=== PATIENT | male | born 1940 | race Caucasian/White ===

== ENCOUNTER 2019-11-30 21:18 | Inpatient (IN) | payer MEDICARE, BC ==
[~2019-11-30] VITALS: Ht 177.8 cm; Wt 75.5 kg
[2019-11-30] MEDS ORDERED: Z GUARD REMEDY PASTE 57 GM TUBE TOP PRN (21:30)
[2019-11-30] MEDS ORDERED: OMEP20CA15 PO (21:31)
[2019-11-30] MEDS ORDERED: COLE1TAB2 PO (21:31)
[2019-11-30] MEDS ORDERED: ENOX40DI SQ (21:31)
[2019-11-30] MEDS ORDERED: SERT50TA PO (21:31)
[2019-11-30] MEDS ORDERED: ATOR20TA PO (21:31)
[2019-11-30] MEDS ORDERED: CHOL200013 PO (21:31)
[2019-11-30] MEDS ORDERED: MERO500V21 IV (21:31)
[2019-11-30] MEDS ORDERED: FLUT16SP BNOSTRILS (21:31)
[2019-11-30] MEDS ORDERED: QUET25TA PO (21:31)
[2019-11-30 21:57] VITALS: BP 122/48
[2019-12-01 05:07] VITALS: BP 108/54
[2019-12-01] MEDS ORDERED: MEROPENEM 0.5 G in IV NORMAL SALINE 50 ML IV ONE (06:00)
[2019-12-01] MEDS ORDERED: MEROPENEM 500 MG VIAL IV SCH (06:00)
[2019-12-01] MEDS: PANTOPRAZOLE SODIUM 40 MG TABLET.DR PO SCH (06:02)
[2019-12-01] MEDS: FLUTICASONE PROP NASAL SPRAY 16 GM BOTTLE NS SCH (08:43)
[2019-12-01] MEDS: CHOLECALCIFEROL 1,000 UNIT TABLET PO SCH (08:43)
[2019-12-01] MEDS: SERTRALINE HCL 50 MG TABLET PO SCH (08:43)
[2019-12-01] MEDS: ENOXAPARIN SODIUM 40 MG/0.4 ML DISP.SYRIN SQ SCH (08:44)
[2019-12-01 08:48] VITALS: BP 108/55
[2019-12-01 09:22] LABS: CREATININE 0.7 mg/dL (0.6-1.3); POTASSIUM 3.7 mmol/L (3.5-5.1)
[2019-12-01] MEDS: MEROPENEM 1 G in IV NORMAL SALINE 100 ML IV SCH ×2 (13:51→21:07)
[2019-12-01 16:36] VITALS: BP 116/57
[2019-12-01] MEDS ORDERED: LOPERAMIDE HCL 2 MG CAPSULE PO PRN (20:00)
[2019-12-01 20:08] VITALS: BP 95/59
[2019-12-01] MEDS: ATORVASTATIN 20 MG TABLET PO SCH (20:10)
[2019-12-01] MEDS: QUETIAPINE FUMARATE 25 MG TABLET PO SCH (20:12)
[2019-12-02 05:03] VITALS: BP 110/60
[2019-12-02] MEDS: MEROPENEM 1 G in IV NORMAL SALINE 100 ML IV SCH (05:16)
[2019-12-02] MEDS: PANTOPRAZOLE SODIUM 40 MG TABLET.DR PO SCH (06:18)
[2019-12-02] MEDS: SERTRALINE HCL 50 MG TABLET PO SCH (08:22)
[2019-12-02] MEDS: CHOLECALCIFEROL 1,000 UNIT TABLET PO SCH (08:22)
[2019-12-02] MEDS: FLUTICASONE PROP NASAL SPRAY 16 GM BOTTLE NS SCH (08:23)
[2019-12-02] MEDS: OXYCODONE/APAP 5-325 MG TABLET PO PRN ×2 (08:23→18:48)
[2019-12-02] MEDS: ENOXAPARIN SODIUM 40 MG/0.4 ML DISP.SYRIN SQ SCH (08:28)
[2019-12-02] MEDS: LIDOCAINE 5% PATCH TD SCH (08:29)
[2019-12-02] MEDS ORDERED: COLESTIPOL HCL 1 GM PO SCH (09:00)
[2019-12-02 09:11] VITALS: BP 90/50
[2019-12-02] MEDS ORDERED: GADOTERATE MEGLUMINE 5 MMOL/10 ML VIAL IV ONE (11:17)
[2019-12-02] MEDS: CEFEPIME HCL 1 G in IV DEXTROSE 5% 50 ML IV SCH (16:02)
[2019-12-02 16:04] VITALS: BP 96/46
[2019-12-02 20:12] VITALS: BP 105/48
[2019-12-02] MEDS: QUETIAPINE FUMARATE 25 MG TABLET PO SCH (21:04)
[2019-12-02] MEDS: ATORVASTATIN 20 MG TABLET PO SCH (21:04)
[2019-12-03] MEDS: OXYCODONE/APAP 5-325 MG TABLET PO PRN (04:06)
[2019-12-03 04:12] VITALS: BP 119/49
[2019-12-03] MEDS: CEFEPIME HCL 1 G in IV DEXTROSE 5% 50 ML IV SCH ×2 (04:14→17:19)
[2019-12-03] MEDS: PANTOPRAZOLE SODIUM 40 MG TABLET.DR PO SCH (06:07)
[2019-12-03 06:40] LABS: BASOPHILS % (AUTO) 0.5 % (0.0-2.0); EOSINOPHILS # (AUTO) 0.2 K/uL (0.0-0.7); EOSINOPHILS % (AUTO) 3.1 % (0.0-7.0); HEMATOCRIT 29.2 % (36.7-47.1); HEMOGLOBIN 9.8 g/dL (12.5-16.3); LYMPHOCYTES # (AUTO) 0.9 K/uL (20.0-40.0); LYMPHOCYTES % (AUTO) 13.9 % (20.5-51.5); MEAN CORPUSCULAR HEMOGLOBIN 33.9 uug (23.8-33.4); MEAN CORPUSCULAR HGB CONC 34 g/dL (32.5-36.3); MEAN CORPUSCULAR VOLUME 101.1 fL (73.0-96.2); MONOCYTES # (AUTO) 0.6 K/uL (2.0-10.0); MONOCYTES % (AUTO) 9.4 % (0.0-11.0); NEUTROPHILS # (AUTO) 4.9 K/uL (1.8-8.9); NEUTROPHILS % (AUTO) 73.1 % (38.5-71.5); PLATELET COUNT (AUTO) 320 K/uL (152-348); RED BLOOD CELL COUNT(AUTO) 2.89 MIL/uL (4.06-5.63); WHITE BLOOD COUNT (AUTO) 6.8 K/uL (3.6-10.2)
[2019-12-03 06:50] LABS: THYROID STIMULATING HORMONE 3.572 mIU/mL (0.358-3.740)
[2019-12-03 07:13] LABS: BILIRUBIN,TOTAL 0.5 mg/dL (0.2-1.0); CREATININE 0.8 mg/dL (0.6-1.3); MAGNESIUM 1.8 mg/dL (1.8-2.4); PHOSPHOROUS 2.8 mg/dL (2.5-4.9); POTASSIUM 3.8 mmol/L (3.5-5.1)
[2019-12-03] MEDS: FLUTICASONE PROP NASAL SPRAY 16 GM BOTTLE NS SCH (08:13)
[2019-12-03] MEDS: LIDOCAINE 5% PATCH TD SCH (08:14)
[2019-12-03] MEDS: CHOLECALCIFEROL 1,000 UNIT TABLET PO SCH (08:15)
[2019-12-03] MEDS: SERTRALINE HCL 50 MG TABLET PO SCH (08:15)
[2019-12-03] MEDS: ENOXAPARIN SODIUM 40 MG/0.4 ML DISP.SYRIN SQ SCH (08:16)
[2019-12-03 10:00] VITALS: BP 133/58
[2019-12-03] MEDS: GABAPENTIN 300 MG CAPSULE PO SCH ×3 (15:06→17:30)
[2019-12-03 15:51] VITALS: BP 99/46
[2019-12-03 20:00] VITALS: BP 128/52
[2019-12-03] MEDS: QUETIAPINE FUMARATE 25 MG TABLET PO SCH (21:01)
[2019-12-03] MEDS: ATORVASTATIN 20 MG TABLET PO SCH (21:01)
[2019-12-04 04:00] VITALS: BP 111/59
[2019-12-04] MEDS: CEFEPIME HCL 1 G in IV DEXTROSE 5% 50 ML IV SCH ×2 (05:05→16:35)
[2019-12-04] MEDS: PANTOPRAZOLE SODIUM 40 MG TABLET.DR PO SCH (06:11)
[2019-12-04 08:00] VITALS: BP 110/52
[2019-12-04] MEDS: FLUTICASONE PROP NASAL SPRAY 16 GM BOTTLE NS SCH (08:57)
[2019-12-04] MEDS: SERTRALINE HCL 50 MG TABLET PO SCH (08:57)
[2019-12-04] MEDS: CHOLECALCIFEROL 1,000 UNIT TABLET PO SCH (08:57)
[2019-12-04] MEDS: LIDOCAINE 5% PATCH TD SCH (08:58)
[2019-12-04] MEDS: ENOXAPARIN SODIUM 40 MG/0.4 ML DISP.SYRIN SQ SCH (08:59)
[2019-12-04] MEDS: GABAPENTIN 300 MG CAPSULE PO SCH ×2 (12:43→17:09)
[2019-12-04 16:00] VITALS: BP 101/53
[2019-12-04 20:00] VITALS: BP 107/52
[2019-12-04] MEDS: QUETIAPINE FUMARATE 25 MG TABLET PO SCH (20:50)
[2019-12-04] MEDS: ATORVASTATIN 20 MG TABLET PO SCH (20:50)
[2019-12-04 21:43] LABS: *OCCULT BLOOD STOOL POSITIVE (NEGATIVE)
[2019-12-05] MEDS: OXYCODONE/APAP 5-325 MG TABLET PO PRN ×2 (03:36→20:06)
[2019-12-05 04:00] VITALS: BP 99/49
[2019-12-05] MEDS: PANTOPRAZOLE SODIUM 40 MG TABLET.DR PO SCH (06:21)
[2019-12-05] MEDS: LIDOCAINE 5% PATCH TD SCH (08:11)
[2019-12-05] MEDS: SERTRALINE HCL 50 MG TABLET PO SCH (08:11)
[2019-12-05] MEDS: GABAPENTIN 300 MG CAPSULE PO SCH ×3 (08:11→17:10)
[2019-12-05] MEDS: FLUTICASONE PROP NASAL SPRAY 16 GM BOTTLE NS SCH (08:11)
[2019-12-05] MEDS: CHOLECALCIFEROL 1,000 UNIT TABLET PO SCH (08:11)
[2019-12-05] MEDS: ENOXAPARIN SODIUM 40 MG/0.4 ML DISP.SYRIN SQ SCH (08:13)
[2019-12-05 09:18] VITALS: BP 112/52
[2019-12-05 15:44] VITALS: BP 101/49
[2019-12-05] MEDS: ATORVASTATIN 10 MG TABLET PO SCH (20:05)
[2019-12-05] MEDS: QUETIAPINE FUMARATE 25 MG TABLET PO SCH (20:05)
[2019-12-05 20:53] VITALS: BP 107/50
[2019-12-06 06:06] VITALS: BP 103/56
[2019-12-06] MEDS: PANTOPRAZOLE SODIUM 40 MG TABLET.DR PO SCH (06:36)
[2019-12-06 06:50] LABS: BASOPHILS # (AUTO) 0.1 K/uL (0.0-8.0); BASOPHILS % (AUTO) 0.8 % (0.0-2.0); EOSINOPHILS # (AUTO) 0.1 K/uL (0.0-0.7); EOSINOPHILS % (AUTO) 2.1 % (0.0-7.0); HEMATOCRIT 28.3 % (36.7-47.1); HEMOGLOBIN 9.8 g/dL (12.5-16.3); LYMPHOCYTES # (AUTO) 1.4 K/uL (20.0-40.0); LYMPHOCYTES % (AUTO) 20.2 % (20.5-51.5); MEAN CORPUSCULAR HEMOGLOBIN 34.2 uug (23.8-33.4); MEAN CORPUSCULAR HGB CONC 35 g/dL (32.5-36.3); MEAN CORPUSCULAR VOLUME 98.9 fL (73.0-96.2); MONOCYTES # (AUTO) 0.8 K/uL (2.0-10.0); MONOCYTES % (AUTO) 11.6 % (0.0-11.0); NEUTROPHILS # (AUTO) 4.5 K/uL (1.8-8.9); NEUTROPHILS % (AUTO) 65.3 % (38.5-71.5); PLATELET COUNT (AUTO) 326 K/uL (152-348); RED BLOOD CELL COUNT(AUTO) 2.86 MIL/uL (4.06-5.63); WHITE BLOOD COUNT (AUTO) 6.9 K/uL (3.6-10.2)
[2019-12-06 07:25] LABS: BILIRUBIN,TOTAL 0.3 mg/dL (0.2-1.0); CREATININE 0.9 mg/dL (0.6-1.3); POTASSIUM 3.8 mmol/L (3.5-5.1); TOTAL PROTEIN, SERUM 5.5 g/dL (6.4-8.2)
[2019-12-06 08:00] VITALS: BP 108/47
[2019-12-06] MEDS: ENOXAPARIN SODIUM 40 MG/0.4 ML DISP.SYRIN SQ SCH (08:14)
[2019-12-06] MEDS: LIDOCAINE 5% PATCH TD SCH (08:16)
[2019-12-06] MEDS: CHOLECALCIFEROL 1,000 UNIT TABLET PO SCH (08:16)
[2019-12-06] MEDS: SERTRALINE HCL 50 MG TABLET PO SCH (08:16)
[2019-12-06] MEDS: GABAPENTIN 300 MG CAPSULE PO SCH ×3 (08:16→16:30)
[2019-12-06] MEDS: FLUTICASONE PROP NASAL SPRAY 16 GM BOTTLE NS SCH (08:17)
[2019-12-06] MEDS: ENSURE ENLIVE (VAN) 240 ML LIQUID PO SCH ×2 (13:24→17:30)
[2019-12-06 16:21] VITALS: BP 106/50
[2019-12-06] MEDS: OXYCODONE/APAP 5-325 MG TABLET PO PRN (19:59)
[2019-12-06] MEDS: ATORVASTATIN 10 MG TABLET PO SCH (20:00)
[2019-12-06] MEDS: QUETIAPINE FUMARATE 25 MG TABLET PO SCH (20:00)
[2019-12-06 21:19] VITALS: BP 119/53
[2019-12-07 05:34] VITALS: BP 110/57
[2019-12-07] MEDS: PANTOPRAZOLE SODIUM 40 MG TABLET.DR PO SCH (06:19)
[2019-12-07] MEDS: FLUTICASONE PROP NASAL SPRAY 16 GM BOTTLE NS SCH (08:10)
[2019-12-07] MEDS: ENSURE ENLIVE (VAN) 240 ML LIQUID PO SCH ×2 (08:10→17:30)
[2019-12-07] MEDS: GABAPENTIN 300 MG CAPSULE PO SCH ×3 (08:10→17:29)
[2019-12-07] MEDS: CHOLECALCIFEROL 1,000 UNIT TABLET PO SCH (08:10)
[2019-12-07] MEDS: ENOXAPARIN SODIUM 40 MG/0.4 ML DISP.SYRIN SQ SCH (08:11)
[2019-12-07] MEDS: LIDOCAINE 5% PATCH TD SCH (08:11)
[2019-12-07] MEDS: SERTRALINE HCL 50 MG TABLET PO SCH (08:11)
[2019-12-07 09:00] VITALS: BP 115/41
[2019-12-07 16:00] VITALS: BP 130/50
[2019-12-07 20:41] VITALS: BP 118/55
[2019-12-07] MEDS: ATORVASTATIN 10 MG TABLET PO SCH (20:57)
[2019-12-07] MEDS: QUETIAPINE FUMARATE 25 MG TABLET PO SCH (20:58)
[2019-12-08 05:32] VITALS: BP 123/59
[2019-12-08] MEDS: PANTOPRAZOLE SODIUM 40 MG TABLET.DR PO SCH (06:14)
[2019-12-08] MEDS: ENSURE ENLIVE (VAN) 240 ML LIQUID PO SCH ×2 (08:00→17:35)
[2019-12-08 08:43] VITALS: BP 102/48
[2019-12-08] MEDS: LIDOCAINE 5% PATCH TD SCH (09:13)
[2019-12-08] MEDS: FLUTICASONE PROP NASAL SPRAY 16 GM BOTTLE NS SCH (09:13)
[2019-12-08] MEDS: CHOLECALCIFEROL 1,000 UNIT TABLET PO SCH (09:14)
[2019-12-08] MEDS: SERTRALINE HCL 50 MG TABLET PO SCH (09:14)
[2019-12-08] MEDS: GABAPENTIN 300 MG CAPSULE PO SCH ×3 (09:14→17:35)
[2019-12-08] MEDS: ENOXAPARIN SODIUM 40 MG/0.4 ML DISP.SYRIN SQ SCH (09:16)
[2019-12-08] MEDS: OXYCODONE/APAP 5-325 MG TABLET PO PRN (12:19)
[2019-12-08 16:34] VITALS: BP 139/77
[2019-12-08 20:00] VITALS: BP 103/50
[2019-12-08] MEDS: ATORVASTATIN 10 MG TABLET PO SCH (20:15)
[2019-12-08] MEDS: QUETIAPINE FUMARATE 25 MG TABLET PO SCH (20:15)
[2019-12-09 04:53] VITALS: BP 118/47
[2019-12-09] MEDS: PANTOPRAZOLE SODIUM 40 MG TABLET.DR PO SCH (06:08)
[2019-12-09 08:00] VITALS: BP 96/55
[2019-12-09] MEDS: FLUTICASONE PROP NASAL SPRAY 16 GM BOTTLE NS SCH (08:57)
[2019-12-09] MEDS: CHOLECALCIFEROL 1,000 UNIT TABLET PO SCH (08:57)
[2019-12-09] MEDS: ENSURE ENLIVE (VAN) 240 ML LIQUID PO SCH ×2 (08:57→17:27)
[2019-12-09] MEDS: GABAPENTIN 300 MG CAPSULE PO SCH ×3 (08:57→17:26)
[2019-12-09] MEDS: SERTRALINE HCL 50 MG TABLET PO SCH (08:57)
[2019-12-09] MEDS: ENOXAPARIN SODIUM 40 MG/0.4 ML DISP.SYRIN SQ SCH (08:58)
[2019-12-09] MEDS: LIDOCAINE 5% PATCH TD SCH (08:59)
[2019-12-09 16:00] VITALS: BP 106/52
[2019-12-09 20:00] VITALS: BP 136/70
[2019-12-09] MEDS: QUETIAPINE FUMARATE 25 MG TABLET PO SCH (20:43)
[2019-12-09] MEDS: ATORVASTATIN 10 MG TABLET PO SCH (20:43)
[2019-12-10] MEDS: OXYCODONE/APAP 5-325 MG TABLET PO PRN ×2 (03:44→10:36)
[2019-12-10 04:00] VITALS: BP 107/55
[2019-12-10] MEDS: PANTOPRAZOLE SODIUM 40 MG TABLET.DR PO SCH (06:24)
[2019-12-10 06:34] LABS: EOSINOPHILS # (AUTO) 0.1 K/uL (0.0-0.7); EOSINOPHILS % (AUTO) 2.5 % (0.0-7.0); HEMATOCRIT 28.5 % (36.7-47.1); HEMOGLOBIN 9.6 g/dL (12.5-16.3); LYMPHOCYTES # (AUTO) 1.3 K/uL (20.0-40.0); LYMPHOCYTES % (AUTO) 25.4 % (20.5-51.5); MEAN CORPUSCULAR HEMOGLOBIN 33.3 uug (23.8-33.4); MEAN CORPUSCULAR HGB CONC 34 g/dL (32.5-36.3); MEAN CORPUSCULAR VOLUME 99.2 fL (73.0-96.2); MONOCYTES # (AUTO) 0.6 K/uL (2.0-10.0); MONOCYTES % (AUTO) 12.6 % (0.0-11.0); NEUTROPHILS % (AUTO) 58.5 % (38.5-71.5); PLATELET COUNT (AUTO) 308 K/uL (152-348); RED BLOOD CELL COUNT(AUTO) 2.88 MIL/uL (4.06-5.63); WHITE BLOOD COUNT (AUTO) 5.1 K/uL (3.6-10.2)
[2019-12-10 06:37] LABS: CREATININE 0.8 mg/dL (0.6-1.3); POTASSIUM 3.8 mmol/L (3.5-5.1)
[2019-12-10 07:30] VITALS: BP 109/50
[2019-12-10] MEDS: SERTRALINE HCL 50 MG TABLET PO SCH (08:34)
[2019-12-10] MEDS: GABAPENTIN 300 MG CAPSULE PO SCH ×3 (08:34→17:12)
[2019-12-10] MEDS: CHOLECALCIFEROL 1,000 UNIT TABLET PO SCH (08:34)
[2019-12-10] MEDS: ENSURE ENLIVE (VAN) 240 ML LIQUID PO SCH ×2 (08:35→17:13)
[2019-12-10] MEDS: ENOXAPARIN SODIUM 40 MG/0.4 ML DISP.SYRIN SQ SCH (08:44)
[2019-12-10] MEDS: LIDOCAINE 5% PATCH TD SCH (08:46)
[2019-12-10] MEDS: FLUTICASONE PROP NASAL SPRAY 16 GM BOTTLE NS SCH (08:47)
[2019-12-10 15:42] VITALS: BP 133/65
[2019-12-10 20:03] VITALS: BP 132/69
[2019-12-10] MEDS: ATORVASTATIN 10 MG TABLET PO SCH (21:03)
[2019-12-10] MEDS: QUETIAPINE FUMARATE 25 MG TABLET PO SCH (21:03)
[2019-12-11 04:54] VITALS: BP 105/62
[2019-12-11] MEDS: PANTOPRAZOLE SODIUM 40 MG TABLET.DR PO SCH (06:03)
[2019-12-11 07:30] VITALS: BP 131/61
[2019-12-11] MEDS: CHOLECALCIFEROL 1,000 UNIT TABLET PO SCH (08:25)
[2019-12-11] MEDS: SERTRALINE HCL 50 MG TABLET PO SCH (08:25)
[2019-12-11] MEDS: GABAPENTIN 300 MG CAPSULE PO SCH ×3 (08:25→17:01)
[2019-12-11] MEDS: FLUTICASONE PROP NASAL SPRAY 16 GM BOTTLE NS SCH (08:26)
[2019-12-11] MEDS: ENSURE ENLIVE (VAN) 240 ML LIQUID PO SCH ×2 (08:28→17:01)
[2019-12-11] MEDS: LIDOCAINE 5% PATCH TD SCH (08:28)
[2019-12-11] MEDS: ENOXAPARIN SODIUM 40 MG/0.4 ML DISP.SYRIN SQ SCH (08:33)
[2019-12-11 15:29] VITALS: BP 112/56
[2019-12-11 20:03] VITALS: BP 129/57
[2019-12-11] MEDS: ATORVASTATIN 10 MG TABLET PO SCH (20:56)
[2019-12-11] MEDS: QUETIAPINE FUMARATE 25 MG TABLET PO SCH (20:56)
[2019-12-12 04:35] VITALS: BP 119/57
[2019-12-12 04:37] VITALS: BP 106/54
[2019-12-12] MEDS: OXYCODONE/APAP 5-325 MG TABLET PO PRN (05:52)
[2019-12-12] MEDS: PANTOPRAZOLE SODIUM 40 MG TABLET.DR PO SCH (06:07)
[2019-12-12 08:28] VITALS: BP 116/53
[2019-12-12] MEDS: ENSURE ENLIVE (VAN) 240 ML LIQUID PO SCH ×2 (08:36→17:17)
[2019-12-12] MEDS: SERTRALINE HCL 50 MG TABLET PO SCH (08:37)
[2019-12-12] MEDS: FLUTICASONE PROP NASAL SPRAY 16 GM BOTTLE NS SCH (08:37)
[2019-12-12] MEDS: CHOLECALCIFEROL 1,000 UNIT TABLET PO SCH (08:37)
[2019-12-12] MEDS: ENOXAPARIN SODIUM 40 MG/0.4 ML DISP.SYRIN SQ SCH (08:43)
[2019-12-12] MEDS: LIDOCAINE 5% PATCH TD SCH (08:44)
[2019-12-12] MEDS: GABAPENTIN 300 MG CAPSULE PO SCH ×3 (08:44→17:17)
[2019-12-12 15:25] VITALS: BP 114/62
[2019-12-12] MEDS: ATORVASTATIN 10 MG TABLET PO SCH (20:04)
[2019-12-12] MEDS: QUETIAPINE FUMARATE 25 MG TABLET PO SCH (20:05)
[2019-12-12 20:30] VITALS: BP 101/49
[2019-12-13 05:40] VITALS: BP 109/45
[2019-12-13] MEDS: PANTOPRAZOLE SODIUM 40 MG TABLET.DR PO SCH (06:04)
[2019-12-13 09:12] VITALS: BP 109/56
[2019-12-13] MEDS: GABAPENTIN 300 MG CAPSULE PO SCH ×3 (09:19→17:42)
[2019-12-13] MEDS: LIDOCAINE 5% PATCH TD SCH (09:19)
[2019-12-13] MEDS: CHOLECALCIFEROL 1,000 UNIT TABLET PO SCH (09:19)
[2019-12-13] MEDS: ENSURE ENLIVE (VAN) 240 ML LIQUID PO SCH ×2 (09:20→17:42)
[2019-12-13] MEDS: FLUTICASONE PROP NASAL SPRAY 16 GM BOTTLE NS SCH (09:20)
[2019-12-13] MEDS: SERTRALINE HCL 50 MG TABLET PO SCH (09:20)
[2019-12-13] MEDS: ENOXAPARIN SODIUM 40 MG/0.4 ML DISP.SYRIN SQ SCH (09:21)
[2019-12-13 16:21] VITALS: BP 105/56
[2019-12-13 20:19] VITALS: BP 114/63
[2019-12-13] MEDS: ATORVASTATIN 10 MG TABLET PO SCH (20:30)
[2019-12-13] MEDS: QUETIAPINE FUMARATE 25 MG TABLET PO SCH (20:31)
[2019-12-14 06:04] VITALS: BP 126/70
[2019-12-14] MEDS: PANTOPRAZOLE SODIUM 40 MG TABLET.DR PO SCH (06:26)
[2019-12-14 08:00] VITALS: BP 104/56
[2019-12-14] MEDS: SERTRALINE HCL 50 MG TABLET PO SCH (09:02)
[2019-12-14] MEDS: GABAPENTIN 300 MG CAPSULE PO SCH (09:02)
[2019-12-14] MEDS: FLUTICASONE PROP NASAL SPRAY 16 GM BOTTLE NS SCH (09:02)
[2019-12-14] MEDS: CHOLECALCIFEROL 1,000 UNIT TABLET PO SCH (09:04)
[2019-12-14] MEDS: LIDOCAINE 5% PATCH TD SCH (09:05)
[2019-12-14] MEDS: ENOXAPARIN SODIUM 40 MG/0.4 ML DISP.SYRIN SQ SCH (09:06)
[2019-12-14] MEDS: ENSURE ENLIVE (VAN) 240 ML LIQUID PO SCH (09:06)
== END 2019-12-14 12:15 | disposition home or self-care (01) | DRG 559 ==
PROVIDERS: ADMIT Physical Medicine & Rehabilitation Pain Medicine; ATTEND Physical Medicine & Rehabilitation Pain Medicine
DX: Z47.89 Encounter for other orthopedic aftercare (principal); E43 Unspecified severe protein-calorie malnutrition; G92 Toxic encephalopathy; D68.59 Other primary thrombophilia; N30.00 Acute cystitis without hematuria; B96.20 Unspecified Escherichia coli [E. coli] as the cause of diseases classified elsewhere; E78.5 Hyperlipidemia, unspecified; F03.90 Unspecified dementia, unspecified severity, without behavioral disturbance, psychotic disturbance, mood disturbance, and anxiety; F32.9 Major depressive disorder, single episode, unspecified; Z98.1 Arthrodesis status; Z91.81 History of falling; J32.9 Chronic sinusitis, unspecified; R53.1 Weakness; R20.0 Anesthesia of skin; M54.16 Radiculopathy, lumbar region; Z88.5 Allergy status to narcotic agent; Z88.8 Allergy status to other drugs, medicaments and biological substances; R19.5 Other fecal abnormalities; D63.8 Anemia in other chronic diseases classified elsewhere
CPT/HCPCS: 36415; 70450; 72158; 82652; 83550; 83735; 84100; 84443; 85025; A9575; J0692; J1650; J2185; J3490; J3535; J7060